=== PATIENT | female | born 1980 | race African-American/Black ===

== ENCOUNTER 2017-04-16 12:49 | Emergency (ER) | payer OTHER ==
[~2017-04-16] VITALS: Ht 152.4 cm; Wt 61.2 kg
[~2017-04-16 12:49] MED LIST: ALBUTEROL SULF8.5 GM INH; PREDNISONE20 MG ORAL
[2017-04-16 13:00] VITALS: BP 139/62
[2017-04-16] MEDS ORDERED: traMADol 50mg tab ORAL ONE (13:45)
[2017-04-16 14:16] LABS: APPEARANCE,URINE CLEAR; KETONES,URINE NEGATIVE (NEGATIVE); LEUKOCYTE ESTERASE ,URINE NEGATIVE (NEGATIVE); NITRITE,URINE NEGATIVE (NEGATIVE); PH,URINE 8 (4.5-8.0); PROTEIN,URINE NEGATIVE (NEGATIVE); UROBILINOGEN,URINE NORMAL MG/DL (0.0-1.0)
--- NOTE | 2017-04-16 15:14 | Diagnostic Imaging Report ---
Indication: PAIN Technique: 3 views of the lumbar spine Comparison: None Findings:There is mild lumbar scoliotic deformity which is probably positional in nature. Bony alignment is otherwise normal. Vertebral body heights are preserved. Disc spaces are preserved. Calcifications in the anterior pelvis probably represent old degenerated uterine fibroids. Impression:No acute process Incidental finding of probable calcified uterine fibroids
[2017-04-16] MEDS ORDERED: TRAMADOL HCL50 MG ORAL (15:21)
[2017-04-16] MEDS ORDERED: IBUPROFEN600 MG ORAL (15:21)
[2017-04-16 15:30] VITALS: BP 128/82
--- NOTE | 2017-04-16 22:12 | Emergency Room Report ---
History of Present Illness General Chief Complaint: Back Pain-No Injury Source: Patient Present Illness Allergies: Coded Allergies: No Known Allergies (Unverified , 04/03/16) Patient History Past Medical History: see triage record Pertinent Family History: none Last Menstrual Period: 03/26/17 Now: No : 1 Para: 1 Reviewed Nursing Documentation: PMH: Agreed, PSxH: Agreed Nursing Documentation-PMH Past Medical History: No History, Except For Review of Systems All Other Systems: negative except mentioned in HPI Physical Exam Vital Signs Date Time Temp Pulse Resp B/P Pulse Ox O2 Delivery O2 Flow Rate FiO2 04/16/17 13:00 97.7 73 18 139/62 98 Room Air Medical Decision Making PA Attestation Dr. Sharp is my supervising physician. Patient management was discussed with my supervising physician Diagnostic Impression: Primary Impression: Back pain Qualified Codes: M54.5 - Low back pain ER Course Ddx considered include but not limited to lumbar strain, degenerative disease, epidural abscess, cauda equina, chronic pain, narcotic dependency. Other X-Ray Diagnostic Results Other X-Ray Diagnostic Results : X-Ray Ordered: L spine Date: April 16, 2017 EP Interpretation: Yes Findings: no fractures, no dislocation, no soft tissue swelling Number of Views: 3 PA Scribe Text I am acting as scribe for my supervising physician. My supervising physician's interpretation of the L spine xrays are there are no fractures, dislocations or soft tissue swelling. Last Vital Signs Date Time Temp Pulse Resp B/P Pulse Ox O2 Delivery O2 Flow Rate FiO2 04/16/17 15:30 71 14 128/82 100 Room Air 04/16/17 14:58 97.7 Disposition: HOME, SELF-CARE Condition: Improved Scripts Tramadol Hcl* (ULTRAM*) 50 Mg Tablet 50 MG ORAL Q6H Y for For Pain, #10 TAB 0 Refills Prov: TERZIAN,COURTNEY P.A. 04/16/17 Ibuprofen* (MOTRIN*) 600 Mg Tablet 600 MG ORAL Q6H Y for For Pain, #30 TAB Prov: TERZIAN,COURTNEY P.A. 04/16/17 Patient Instructions: Back Pain, Adult Additional Instructions: I discussed my findings with the patient. All questions and concerns have been answered. Treatment and medication compliance have been addressed. I advised the patient that they need to follow up with PMD in 3-5 days. Return to ED if pain remains or worsens, numbness or tingling occurs, new rash is noticed, fever is noticed, or if needed for any reason. Patient verbalized understanding of discharge instructions. Patient was informed to followup with primary doctor and also ask for MRI if pain continues or worsens COURTNEY DYE April 16, 2017 22:12
== END 2017-04-16 15:33 | disposition home or self-care (01) ==
LOC: EMR 13:40
DX: M54.5 Low back pain (principal)
CPT/HCPCS: 72020; 81003; 81025; 99284

== ENCOUNTER 2017-11-23 11:22 | Emergency (ER) | payer OTHER ==
[~2017-11-23] VITALS: Ht 152.4 cm; Wt 61.2 kg
[~2017-11-23 11:22] MED LIST changes: +IBUPROFEN600 MG ORAL; +TRAMADOL HCL50 MG ORAL
[2017-11-23 11:38] VITALS: BP 132/84
[2017-11-23] MEDS ORDERED: ADULT WAL-100 MG/5 M ORAL (13:43)
[2017-11-23] MEDS ORDERED: BENTYL10 MG ORAL (13:43)
[2017-11-23 13:55] VITALS: BP 126/75
--- NOTE | 2017-11-23 14:09 | Diagnostic Imaging Report ---
Indication: Dyspnea Comparison: 04/03/2016 A single view chest radiograph was obtained. Findings: Cardiomediastinal appearance is within normal limits for age. Pulmonary vascularity is appropriate. The diaphragmatic contour is smooth and costophrenic angles are sharp. No pleural effusions are identified. The bones are unremarkable. Impression: No acute findings
--- NOTE | 2017-11-30 00:59 | Emergency Room Report ---
History of Present Illness General Chief Complaint: Flu Like Symptoms Present Illness HPI Patient is a 37-year-old female who presented after having to cough and congestion for the past 2 weeks. Patient reported increased nasal congestion as well as a intermittently productive cough. The patient stated that she had fever initially which had resolved. She denies any shortness of breath. She reports having chest pain with cough. Allergies: Coded Allergies: No Known Allergies (Unverified , 04/03/16) Patient History Past Medical History: see triage record Reviewed Nursing Documentation: PMH: Agreed, PSxH: Agreed Review of Systems All Other Systems: negative except mentioned in HPI Physical Exam Vital Signs Date Time Temp Pulse Resp B/P (MAP) Pulse Ox O2 Delivery O2 Flow Rate FiO2 11/23/17 11:28 97.9 76 20 132/84 99 Room Air General Appearance: well appearing, no apparent distress, alert, GCS 15 Head: normocephalic, atraumatic ENT: hearing grossly normal, normal voice Neck: full range of motion, supple Respiratory: no respiratory distress, speaking full sentences Cardiovascular #1: normal inspection, normal peripheral pulses Gastrointestinal: normal inspection Musculoskeletal: normal inspection, no calf tenderness Neurologic: normal inspection, alert, oriented x3, normal gait Psychiatric: mood/affect normal Skin: no rash Medical Decision Making Diagnostic Impression: Primary Impression: Viral syndrome ER Course Patient presented for cough.Differential diagnosis included but was not limited to bronchitis, pneumonia, pulmonary embolism, pericarditis, asthma, foreign body. The patient was given prescription for cough medications. The patient presented with a viral respiratory infection This report is dictated with [employer] packaging machine supplies distributor software which may occasionally lead to discrepancies related to use of this software. The patient is advised to follow up with primary care doctor in 1-2 days. Patient is advised to return if any worsening condition or if any changes in status that are concerning. This report is dictated with [employer] packaging machine supplies distributor software which may occasionally lead to discrepancies related to use of this software. Labs Test 11/23/17 12:23 Urine HCG, Qualitative Negative Last Vital Signs Date Time Temp Pulse Resp B/P (MAP) Pulse Ox O2 Delivery O2 Flow Rate FiO2 11/23/17 13:55 68 16 126/75 100 Room Air 11/23/17 11:38 97.9 Status: improved Disposition: HOME, SELF-CARE Condition: Stable Scripts Dicyclomine Hcl* (BENTYL*) 10 Mg Capsule 10 MG ORAL FOUR TIMES A DAY, #60 CAP Prov: Jose Luis Sharp 11/23/17 Guaifenesin* ([facility] 100 Mg/5 Ml Liquid 10 ML ORAL Q4H, #120 ML Prov: Jose Luis Sharp 11/23/17 Patient Instructions: Viral Respiratory Infection Jose Luis Sharp Nov 30, 2017 00:59
== END 2017-11-23 13:58 | disposition home or self-care (01) ==
LOC: EMR 13:09
DX: B34.9 Viral infection, unspecified (principal)
CPT/HCPCS: 71010; 81025; 99283

== ENCOUNTER 2018-05-13 11:14 | Emergency (ER) | payer OTHER ==
[~2018-05-13] VITALS: Ht 152.4 cm; Wt 59.0 kg
[~2018-05-13 11:14] MED LIST changes: +ADULT WAL-100 MG/5 M ORAL; +BENTYL10 MG ORAL
[2018-05-13 11:28] VITALS: BP 122/62
[2018-05-13] MEDS ORDERED: Lidocaine 2% Visc 15ml soln ORAL ONE (12:00)
[2018-05-13 12:34] LABS: APPEARANCE,URINE CLEAR; BILIRUBIN, URINE NEGATIVE (NEGATIVE); GLUCOSE, URINE (UA) NEGATIVE (NEGATIVE); KETONES,URINE NEGATIVE (NEGATIVE); LEUKOCYTE ESTERASE ,URINE NEGATIVE (NEGATIVE); NITRITE,URINE NEGATIVE (NEGATIVE); PH,URINE 5 (4.5-8.0); PROTEIN,URINE NEGATIVE (NEGATIVE); UROBILINOGEN,URINE NORMAL MG/DL (0.0-1.0)
[2018-05-13 12:39] LABS: EOSINOPHILS % (AUTO) 0.8 % (0.0-3.0); HEMATOCRIT 41.6 % (37.0-47.0); HEMOGLOBIN 13.8 G/DL (12.0-16.0); LYMPHOCYTES % (AUTO) 34.3 % (20.0-45.0); MEAN CORPUSCULAR VOLUME 87 FL (80-99); MONOCYTES % (AUTO) 9.7 % (1.0-10.0); NEUTROPHILS % (AUTO) 54.1 % (45.0-75.0); PLATELET COUNT 224 K/UL (150-450); RED BLOOD COUNT 4.78 M/UL (4.20-5.40); RED CELL DISTRIBUTION WIDTH 10.9 % (11.6-14.8); WHITE BLOOD COUNT 4.3 K/UL (4.8-10.8)
[2018-05-13 12:43] LABS: COLOR,URINE YELLOW
[2018-05-13 12:44] LABS: ANION GAP 6 mmol/L (5-15); BLOOD UREA NITROGEN 7 mg/dL (7-18); CALCIUM 8.9 MG/DL (8.5-10.1); CARBON DIOXIDE 25 MMOL/L (21-32); CHLORIDE 105 MMOL/L (98-107); CREATININE 0.6 MG/DL (0.55-1.30); POTASSIUM 4.2 MMOL/L (3.5-5.1); SODIUM 136 MMOL/L (136-145)
[2018-05-13 12:49] LABS: ALANINE AMINOTRANSFERASE 28 U/L (12-78); ALBUMIN 3.8 G/DL (3.4-5.0); ALKALINE PHOSPHATASE 48 U/L (46-116); ASPARTATE AMINO TRANSFERASE 20 U/L (15-37); BILIRUBIN,TOTAL 0.4 MG/DL (0.2-1.0)
[2018-05-13 13:42] VITALS: BP 122/61
[2018-05-13] MEDS ORDERED: Isovue-300 100ml vial INJ PRN (14:15)
--- NOTE | 2018-05-13 14:35 | Emergency Room Report ---
History of Present Illness General Chief Complaint: Abdominal Pain Source: Patient Present Illness HPI This patient states that she has had pain in her suprapubic area and right lower quadrant for the past one week. She states that her last menstrual period was April 13. She did not have her period in April. She denies dysuria or hematuria. She denies fever or chills. She denies nausea or vomiting. She has no other complaints. Allergies: Coded Allergies: No Known Allergies (Unverified , 04/03/16) Patient History Past Medical History: none, see triage record Social History: Denies: smoking, alcohol use, drug use Now: No Reviewed Nursing Documentation: PMH: Agreed; PSxH: Agreed Nursing Documentation-PMH Past Medical History: No History, Except For Review of Systems All Other Systems: negative except mentioned in HPI Physical Exam Vital Signs Date Time Temp Pulse Resp B/P (MAP) Pulse Ox O2 Delivery O2 Flow Rate FiO2 05/13/18 11:21 98.1 75 20 122/62 100 Room Air 98.1 Sp02 EP Interpretation: reviewed, normal General Appearance: no apparent distress, alert, GCS 15, non-toxic Head: normocephalic, atraumatic Eyes: bilateral eye normal inspection, bilateral eye PERRL ENT: hearing grossly normal, normal pharynx, no angioedema, normal voice Neck: full range of motion, supple/symm/no masses Respiratory: chest non-tender, lungs clear, normal breath sounds, speaking full sentences Cardiovascular #1: regular rate, rhythm, no edema Gastrointestinal: normal bowel sounds, soft, non-distended, no guarding, no rebound, tenderness - TTP in RLQ/R. pelvis Rectal: deferred Musculoskeletal: back normal, gait/station normal, normal range of motion, non- tender Neurologic: alert, oriented x3, responsive, motor strength/tone normal, sensory intact, speech normal Psychiatric: judgement/insight normal, memory normal, mood/affect normal, no suicidal/homicidal ideation Skin: normal color, no rash, warm/dry, well hydrated Medical Decision Making Diagnostic Impression: Primary Impression: Additional Impression: Pelvic pain ER Course This patient has right lower quadrant abdominal pain and a positive test. I'm concerned for ectopic . The patient is awaiting pelvic ultrasound. Final disposition per results of ultrasound. The patient is stable here in emergency department. Laboratory Tests Test 05/13/18 12:00 White Blood Count 4.3 K/UL (4.8-10.8) L Red Blood Count 4.78 M/UL (4.20-5.40) Hemoglobin 13.8 G/DL (12.0-16.0) Hematocrit 41.6 % (37.0-47.0) Mean Corpuscular Volume 87 FL (80-99) Mean Corpuscular Hemoglobin 28.9 PG (27.0-31.0) Mean Corpuscular Hemoglobin Concent 33.2 G/DL (32.0-36.0) Red Cell Distribution Width 10.9 % (11.6-14.8) L Platelet Count 224 K/UL (150-450) Mean Platelet Volume 9.2 FL (6.5-10.1) Neutrophils (%) (Auto) 54.1 % (45.0-75.0) Lymphocytes (%) (Auto) 34.3 % (20.0-45.0) Monocytes (%) (Auto) 9.7 % (1.0-10.0) Eosinophils (%) (Auto) 0.8 % (0.0-3.0) Basophils (%) (Auto) 1.0 % (0.0-2.0) Urine Color Yellow Urine Appearance Clear Urine pH 5 (4.5-8.0) Urine Specific [place] 1.025 (1.005-1.035) Urine Protein Negative (NEGATIVE) Urine Glucose (UA) Negative (NEGATIVE) Urine Ketones Negative (NEGATIVE) Urine Occult Blood Negative (NEGATIVE) Urine Nitrite Negative (NEGATIVE) Urine Bilirubin Negative (NEGATIVE) Urine Urobilinogen Normal MG/DL (0.0-1.0) Urine Leukocyte Esterase Negative (NEGATIVE) Urine HCG, Qualitative Positive (NEGATIVE) Sodium Level 136 MMOL/L (136-145) Potassium Level 4.2 MMOL/L (3.5-5.1) Chloride Level 105 MMOL/L (98-107) Carbon Dioxide Level 25 MMOL/L (21-32) Anion Gap 6 mmol/L (5-15) Blood Urea Nitrogen 7 mg/dL (7-18) Creatinine 0.6 MG/DL (0.55-1.30) Estimate Glomerular Filtration Rate > 60 mL/min (>60) Glucose Level 111 MG/DL (74-106) H Calcium Level 8.9 MG/DL (8.5-10.1) Total Bilirubin 0.4 MG/DL (0.2-1.0) Aspartate Amino Transferase (AST) 20 U/L (15-37) Alanine Aminotransferase (ALT) 28 U/L (12-78) Alkaline Phosphatase 48 U/L (46-116) Total Protein 7.5 G/DL (6.4-8.2) Albumin 3.8 G/DL (3.4-5.0) Globulin 3.7 g/dL Albumin/Globulin Ratio 1.0 (1.0-2.7) Lipase 172 U/L (73-393) CT/MRI/US Diagnostic Results CT/MRI/US Diagnostic Results : Imaging Test Ordered: Pelvic US Impression Pending. See EMR Last Vital Signs Date Time Temp Pulse Resp B/P (MAP) Pulse Ox O2 Delivery O2 Flow Rate FiO2 05/13/18 13:42 98.0 64 19 122/61 100 Room Air 98.0 Referrals: [facility],REFERRING (PCP) Alejandra Vernon DO May 13, 2018 14:35
[2018-05-13 14:56] VITALS: BP 121/63
[2018-05-13 15:45] VITALS: BP 125/68
--- NOTE | 2018-05-13 17:13 | Diagnostic Imaging Report ---
Indication: Pain. Positive test. Technique: Grayscale and duplex Doppler imaging of the pelvis performed utilizing a transabdominal scan and endovaginal scan. Comparison: None Findings: Uterus measures 9.7 x 4.4 x 5.2 cm transabdominally. An intrauterine gestational sac is noted. A yolk sac is seen however no pole is identified at this time. A heterogeneous mass in the anterior myometrium measures approximate 3.2 x 1.8 cm. A nabothian cyst is noted within the cervix. The left ovary measures 3.3 x 2.8 x 2.5 cm/12 mL. Color flow to the left ovary is documented. A simple appearing left ovarian cyst is noted. The right ovary is not seen on transabdominal or transvaginal scanning. Mild free fluid is noted in the cul-de-sac. IMPRESSION: Intrauterine gestational sac with identifiable yolk sac. No pole seen at this time. Findings may be related to early . Correlation with trended beta-HCG and short-term interval follow-up ultrasound recommended. Obstetric follow-up recommended. Heterogeneous mass in the uterus measuring approximately 3.2 cm possibly representing a fibroid. Simple appearing left ovarian cyst. Color flow noted to the left ovary. Right ovary not identified on transabdominal or transvaginal scanning. Trace free pelvic fluid.
[2018-05-13 18:00] VITALS: BP 123/58
[2018-05-13 18:02] VITALS: BP 125/68
--- NOTE | 2018-05-13 21:19 | Emergency Room Report ---
History of Present Illness General Chief Complaint: Abdominal Pain Source: Patient Present Illness Allergies: Coded Allergies: No Known Allergies (Unverified , 04/03/16) Patient History Now: No Nursing Documentation-[facility] Past Medical History: No History, Except For Physical Exam Vital Signs Date Time Temp Pulse Resp B/P (MAP) Pulse Ox O2 Delivery O2 Flow Rate FiO2 05/13/18 11:21 98.1 75 20 122/62 100 Room Air 98.1 Medical Decision Making Diagnostic Impression: Primary Impression: Threatened miscarriage ER Course Please refer to the initial note for the history exam and presentation At this time patient was pending ultrasound Ultrasound reveals intrauterine with evidence of early Patient's also shows evidence of fibroids on the ultrasound Patient requiring close outpatient follow-up and otherwise clear for discharge Labs Test 05/13/18 12:00 White Blood Count 4.3 K/UL (4.8-10.8) Red Blood Count 4.78 M/UL (4.20-5.40) Hemoglobin 13.8 G/DL (12.0-16.0) Hematocrit 41.6 % (37.0-47.0) Mean Corpuscular Volume 87 FL (80-99) Mean Corpuscular Hemoglobin 28.9 PG (27.0-31.0) Mean Corpuscular Hemoglobin Concent 33.2 G/DL (32.0-36.0) Red Cell Distribution Width 10.9 % (11.6-14.8) Platelet Count 224 K/UL (150-450) Mean Platelet Volume 9.2 FL (6.5-10.1) Neutrophils (%) (Auto) 54.1 % (45.0-75.0) Lymphocytes (%) (Auto) 34.3 % (20.0-45.0) Monocytes (%) (Auto) 9.7 % (1.0-10.0) Eosinophils (%) (Auto) 0.8 % (0.0-3.0) Basophils (%) (Auto) 1.0 % (0.0-2.0) Urine Color Yellow Urine Appearance Clear Urine pH 5 (4.5-8.0) Urine Specific [place] 1.025 (1.005-1.035) Urine Protein Negative (NEGATIVE) Urine Glucose (UA) Negative (NEGATIVE) Urine Ketones Negative (NEGATIVE) Urine Occult Blood Negative (NEGATIVE) Urine Nitrite Negative (NEGATIVE) Urine Bilirubin Negative (NEGATIVE) Urine Urobilinogen Normal MG/DL (0.0-1.0) Urine Leukocyte Esterase Negative (NEGATIVE) Urine HCG, Qualitative Positive (NEGATIVE) Sodium Level 136 MMOL/L (136-145) Potassium Level 4.2 MMOL/L (3.5-5.1) Chloride Level 105 MMOL/L (98-107) Carbon Dioxide Level 25 MMOL/L (21-32) Anion Gap 6 mmol/L (5-15) Blood Urea Nitrogen 7 mg/dL (7-18) Creatinine 0.6 MG/DL (0.55-1.30) Estimat Glomerular Filtration Rate > 60 mL/min (>60) Glucose Level 111 MG/DL (74-106) Calcium Level 8.9 MG/DL (8.5-10.1) Total Bilirubin 0.4 MG/DL (0.2-1.0) Aspartate Amino Transf (AST/SGOT) 20 U/L (15-37) Alanine Aminotransferase (ALT/SGPT) 28 U/L (12-78) Alkaline Phosphatase 48 U/L (46-116) Total Protein 7.5 G/DL (6.4-8.2) Albumin 3.8 G/DL (3.4-5.0) Globulin 3.7 g/dL Albumin/Globulin Ratio 1.0 (1.0-2.7) Lipase 172 U/L (73-393) Human Chorionic Gonadotropin, Quant 89920 mIU/mL (1-6) CT/MRI/US Diagnostic Results CT/MRI/US Diagnostic Results : Impression pelvic ultrasoundIMPRESSION: Intrauterine gestational sac with identifiable yolk sac. No pole seen at this time. Findings may be related to early . Correlation with trended beta- HCG and short-term interval follow-up ultrasound recommended. Obstetric follow-up recommended. Heterogeneous mass in the uterus measuring approximately 3.2 cm possibly representing a fibroid. Simple appearing left ovarian cyst. Color flow noted to the left ovary. Right ovary not identified on transabdominal or transvaginal scanning. Trace free pelvic fluid. Last Vital Signs Date Time Temp Pulse Resp B/P (MAP) Pulse Ox O2 Delivery O2 Flow Rate FiO2 05/13/18 18:02 75 21 125/68 100 Room Air 05/13/18 18:00 98.0 98.0 Status: improved Disposition: HOME, SELF-CARE Condition: Improved Referrals: [facility],REFERR[facility] (PCP) Patient Instructions: Threatened Miscarriage, [id number] Additional Instructions: Patient is provided with the discharge instructions notified to follow up with primary doctor in the next 2-3 days otherwise return to the er with any worsening symptoms. Please note that this report is being documented using [employer] technology. This can lead to erroneous entry secondary to incorrect interpretation by the dictating instrument. Cynthia Meza DO May 13, 2018 21:18
== END 2018-05-13 18:05 | disposition home or self-care (01) ==
LOC: EMR 11:39
DX: O20.0 Threatened abortion (principal); Z3A.00 Weeks of gestation of pregnancy not specified; O34.11 Maternal care for benign tumor of corpus uteri, first trimester; D25.9 Leiomyoma of uterus, unspecified
CPT/HCPCS: 36415; 76801; 76830; 80053; 81003; 81025; 83690; 84702; 85025; 86900; 86901; 96361; 96374; 99284; S0028; 96360

== ENCOUNTER 2019-03-03 17:42 | Emergency (ER) | payer OTHER ==
[~2019-03-03] VITALS: Ht 154.9 cm; Wt 58.5 kg
[2019-03-03] MEDS ORDERED: NKM (17:59)
--- NOTE | 2019-03-03 19:16 | Emergency Room Report ---
History of Present Illness General Chief Complaint: Lower Extremity Injury Source: Medical Record Present Illness HPI 38-year-old female presents to the emergency department complaining of 10 out of 10 in severity localized right lateral ankle pain times one day. Patient status post mechanical trip and fall where she did not fall completely to the ground. Patient reports twisting of her ankle and having pain with attempts to bear weight or walk. Patient reports palpation also exacerbates her pain she reports some relief with resting and elevation. Patient states she is currently breast-feeding she denies open wounds or bleeding denies hitting her head or having a loss of consciousness. Patient denies paresthesias. Allergies: Coded Allergies: No Known Allergies (Unverified , 04/03/16) Patient History Past Medical History: see triage record Past Surgical History: none Pertinent Family History: none Last Menstrual Period: delivered baby 2 months ago, on Now: No Reviewed Nursing Documentation: PMH: Agreed; PSxH: Agreed Nursing Documentation-PMH Past Medical History: No History, Except For Review of Systems All Other Systems: negative except mentioned in HPI Physical Exam Vital Signs Date Time Temp Pulse Resp B/P (MAP) Pulse Ox O2 Delivery O2 Flow Rate FiO2 03/03/19 17:50 98.2 78 18 160/84 99 Room Air Sp02 EP Interpretation: reviewed, normal General Appearance: alert, GCS 15, non-toxic, mild distress Head: normocephalic, atraumatic Eyes: bilateral eye normal inspection, bilateral eye PERRL ENT: hearing grossly normal, normal voice Neck: full range of motion Respiratory: lungs clear, normal breath sounds, speaking full sentences Cardiovascular #1: regular rate, rhythm Cardiovascular #2: 2+ dorsalis pedis (R) Musculoskeletal: back normal, gait/station normal, normal range of motion, non- tender, tender - lateral Right ankle, swelling noted, no bruises,No obvious deformities or increase in laxity of the joint. Neurologic: alert, oriented x3, responsive, motor strength/tone normal, sensory intact, speech normal, grossly normal Psychiatric: judgement/insight normal Skin: normal color, no rash, warm/dry, well hydrated Medical Decision Making PA Attestation Dr. Sharp is my supervising Physician whom patient management has been discussed with. Diagnostic Impression: Primary Impression: Right ankle sprain Qualified Codes: S93.401A - Sprain of unspecified ligament of right ankle, initial encounter ER Course 38-year-old female presents to the emergency department complaining of 10 out of 10 in severity localized right lateral ankle pain times one day. Patient status post mechanical trip and fall where she did not fall completely to the ground. Patient reports twisting of her ankle and having pain with attempts to bear weight or walk. Patient reports palpation also exacerbates her pain she reports some relief with resting and elevation. Patient states she is currently breast-feeding she denies open wounds or bleeding denies hitting her head or having a loss of consciousness. Patient denies paresthesias. Ddx considered but are not limited to Fracture, dislocation, contusion, Sprain/ Strain/Spasm, Epidural abscess, Neoplastic mets. Vital signs: are WNL, pt. is afebrile H&PE are most consistent with musculoskeletal injury will perform imaging to r/ o fractures/dislocations. ORDERS: - X-ray Right ankle 3 views - negative for fx, Dislocation, or significant soft tissue injury, per preliminary read in ED, and signed by XIN Buenrostro , my supervising physician has reviewed, and agrees with my interpretation. ED INTERVENTIONS: - Air Splint applied to the right ankle by technology manager. Pt. remains neurovascularly intact. -Patient is provided with crutches and instructed on their use DISCHARGE: At this time pt. is stable for d/c to home. Will provide printed patient care instructions, and any necessary prescriptions. Care plan and follow up instructions have been discussed with the patient prior to discharge. Other X-Ray Diagnostic Results Other X-Ray Diagnostic Results : X-Ray ordered: Right ankle # of Views/Limited Vs Complete: 3 View Indication: Pain EP Interpretation: Yes XIN Xray: Interpretation reviewed, by supervising MD, and agrees with findings. Interpretation: no dislocation, no soft tissue swelling, no fractures Electronically Signed by: Yoli Buenrostro PA-C Last Vital Signs Date Time Temp Pulse Resp B/P (MAP) Pulse Ox O2 Delivery O2 Flow Rate FiO2 03/03/19 17:50 98.2 78 18 160/84 99 Room Air Disposition: HOME, SELF-CARE Condition: Stable Referrals: [facility]ERR[facility] (PCP) Departure Forms: Return to Work Return to Work Date: Mar 06, 2019 Work Restrictions: No Heavy Lifting, No Prolonged Standing, Desk Work Only Other Restrictions: May return Sooner if Symptoms have resolved. Return to Full Activity: Mar 10, 2019 Patient Instructions: Ankle Sprain Additional Instructions: Take medications as directed. Follow up with a Primary Care Provider in 3-5 days, even if your symptoms have resolved. --Please review list of primary care clinics, if you do not already have a primary care provider Return sooner to ED if new symptoms occur, or current symptoms become worse. - Please note that this Emergency Department Report was dictated using [employer] software, occasionally this can lead to erroneous entry secondary to interpretation by the dictation equipment. Yoli Buenrostro Mar 03, 2019 19:16
[2019-03-03] MEDS ORDERED: IBUPROFEN600 MG ORAL (19:18)
[2019-03-03 19:23] VITALS: BP 142/76
--- NOTE | 2019-03-04 09:58 | Diagnostic Imaging Report ---
Indication: Right ankle pain Technique: 3 views of the right ankle Comparison: none Findings: There is mild soft tissue swelling overlying the distal fibula. No acute fractures. No dislocations. The joint spaces are preserved. Impression: Evidence of soft tissue injury. No acute bony trauma
== END 2019-03-03 19:32 | disposition home or self-care (01) ==
LOC: EMR 19:02
DX: S93.401A Sprain of unspecified ligament of right ankle, initial encounter (principal); W01.0XXA Fall on same level from slipping, tripping and stumbling without subsequent striking against object, initial encounter; Y92.9 Unspecified place or not applicable
CPT/HCPCS: 99283